=== PATIENT | female | born 1945 | race Caucasian/White ===

== ENCOUNTER 2023-11-23 13:15 | Outpatient (RCR) | payer MEDICARE, SELFPAY ==
--- NOTE | 2023-10-27 16:15 | PTOPEVAL1 ---
Assessment and note entered by Shanthi Lopez, PT Assessment Status Evaluation Diagnosis Presence of artificial joint R knee, weakness, oth abnormalities of gait Subjective Information Pt reports total knee replacement R knee [address] Dennis Reports when is on the ground has a really hard time getting back up. 2019 got out of bed, then all of a sudden was on the floor and couldn't get up. Was on the ground so long (5 hrs) ended up at [facility]. Has not had much of a problem with the right knee. Changes in weather are noticeable. The other day had a small fall and from the floor scooted over till got close to the bed, used foot rail to assist in pulling herself up. Reports left knee is about time to be replaced but other times has no problems. Right knee recovery went great . Feels like weakness and mobility deficits may be related to both knees. Sometimes doesn't need her cane but usually takes it with her all the time for security purposes. Reports trying to walk one day was with a friend, and all of a sudden felt the need to sit down for a few minutes. Also gets lower back pain. History of spinal infection with fall in 2019. Assessment PT Clinical Summary Pt presents for evaluation of presence of artificial knee RLE and other abnormalities of gait and mobility. Pt currently does not complain of pain in RLE but does have history of back pain. Pt demo's what appears to be sacral and pelvic alignment issues, decreased strength lumbopelvic all effecting stability and ambulation. Pt will greatly benefit from physical therapy to address deficits and improve safe functional independence. Plan of Care Interventions Electrical Stimulation,Hot Pack/Cold Pack,Manual Therapy,Neuro Re-education,Patient/Caregiver Educati,Therapeutic Activities,Therapeutic Exercise,Ultrasound PT Services Indicated Yes Treatment Frequency and 1-2x weekly x 8 weeks Duration These treatments will address the objective and functional deficits as defined above. The patient will be advanced safely and appropriately in order for the patient to progress towards his/her prior leve
--- NOTE | 2023-10-27 16:15 | OPREHPOC ---
Outpatient Therapy Plan of Care This is a Multidisciplinary Plan of Care that may contain components documented by all disciplines (PT, OT, and ST.) PT Problem 1 PT Problem #1 Knowledge Deficit PT Goal 1 Goal Pt will be independent in HEP Pt will verbalize understanding of diagnosis and prognosis Target Visit 8 PT Problem 2 PT Problem #2 Impaired Gait PT Goal 1 Goal Pt will demo gait of 80 feet without audible clunking showing increased pelvic stability Target Visit 8 PT Goal 2 Goal Pt will demo equal stance time, equal step length, appropriate lubar and hip alignment with ambulation with LRAD showing improved balance and stability Target Visit 16 PT Problem 3 PT Problem #3 Impaired Strength PT Goal 1 Goal Pt will demo core strength of 3+/5 of the TRAM to improve lumbopelvic stability PT Goal 2 Goal Pt will demo strength of 4/5 in all tested planes
--- NOTE | 2023-11-23 15:38 | PTOPDC ---
Assessment and note entered by Shanthi Lopez, PT Assessment Status Discharge Diagnosis Presence of artificial joint R knee, weakness, oth abnormalities of gait Subjective Information Pt reports yesterday her back did really well. Pt reports weakness in knees is a 3/10 , does feel improved overall. Reports the other day was on a stool and it went out from under her but she was able to get up independently. Both hips are sore and knees are stiff but not painful. Percieve Improvement: 30% overall. Reports weather effects her as well Reported Pain Level Pain Score 4,0: Self Report Assessment PT Clinical Summary Pt has attended six visits including evaluation for her weakness and gait/mobility issues. She reports feeling 30% improved overall, has show some mild increases in balance and strength but significant increases in quality of movement in ambulation. However due to having to go out of town for a month or more, she asked to wrap up her therapy and plans to come back to therapy upon her return home. She has partially met many of her goals but did not have the time in therapy to fully realize all her goals. Thus patient is being discharged per request.
== END 2023-11-30 09:10 | disposition home or self-care (01) ==
LOC: ANHHIPT 13:15
PROVIDERS: PCP Family Medicine; Visit Provider Family Medicine
DX: R26.89 Other abnormalities of gait and mobility (principal); R53.1 Weakness; Z96.651 Presence of right artificial knee joint
CPT/HCPCS: 97110; 97112; 97140; 97161; 97750

== ENCOUNTER 2024-05-29 13:15 | Outpatient (RCR) | payer MEDICARE, SELFPAY ==
--- NOTE | 2024-03-20 14:30 | PTOPEVAL1 ---
Assessment and note entered by Litzy Bailey, PT Evaluation Information Assessment Status Evaluation Diagnosis osteoarthritis, abnormalities of gait and mobility, Low Back Pain Therapy Conditions weakness, balance deficits, postural abnormalities Onset approx a month ago Subjective Information Pt reports waking up one day and experiencing pain the moment she got up and started walking. States it was a 5/10 at the time, she took Tylenol to relieve the pain. Reports having increased difficulty with stairs, bending and lifting objects off the floor; increased difficulty with getting up from the floor after falling earlier in January; have had a few falls and near fall experiences due to balance issues. Pt's goal is to alleviate the pain, wants to walk without the cane, be a little more steady on her feet. Reported Pain Level Pain Score 4: Self Report Assessment PT Clinical Summary Pt presents with pain to lowback radiating down to L buttock, hip and hamstrings area down to the back of her knee, usual onset is during the initial step after being in a prolonged sitting/ lying down position. weakness creating muscle imbalance with RLE stronger than the LLE; postural deficits and significant gait impairments, pt is currently using a cane. Skilled PT necessary to manage pain, improve strength, postural alignment, address balance deficits and gait impairments to allow patient to perform IADLs safely and independently. Plan of Care Interventions Check Out for Orthotic/Pr,Electrical Stimulation, Gait Training,Hot Pack/Cold Pack,Manual Therapy, Neuro Re-education,Patient/Caregiver Educati, Therapeutic Activities,Therapeutic Exercise PT Services Indicated Yes Treatment Frequency and 2x/week x 12 visits Duration These treatments will address the objective and functional deficits as defined above. The patient will be advanced safely and appropriately in order for the patient to progress towards his/her prior level of function. Additional exercises will be introduced and as well as a comprehensive home exercise program upon discharge, if needed, ?to ensure carryover of functional gains achieved in the clinic. This treatment plan has been reviewed and agreement upon by the patient.
--- NOTE | 2024-04-10 16:51 | PTOPEVAL1 ---
Assessment and note entered by Litzy Bailey, PT Evaluation Information Assessment Status Evaluation Diagnosis M19.90, R26.89, M54.50 Therapy Conditions Pain, weakness, gait impairments Onset approx a month ago Subjective Information Pt reports waking up one day and experiencing pain the moment she got up and started walking. States it was a 5/10 then, took Tylenol to relieve the pain. Reports having increased difficulty with stairs, bending and lifting objects off the floor; increased difficulty with getting up from the floor after falling earlier in January; have had a few falls and near fall experiences due to balance issues. Pt's goal is to alleviate the pain, wants to walk without the cane, be a little more steady on her feet. Reported Pain Level Pain Score 4: Self Report Assessment PT Clinical Summary Pt presents with pain to lowback radiating down to L buttock, hip and hamstrings area down to the back of her knee, usual onset is during the initial step after being in a prolonged sitting/ lying down position. weakness creating muscle imbalance with RLE stronger than the LLE; postural deficits and significant gait impairments, pt is currently using a cane. Skilled PT necessary to manage pain, improve strength, postural alignment, address balance deficits and gait impairments to allow patient to perform IADLs safely and independently. Plan of Care Interventions Check Out for Orthotic/Pr,Electrical Stimulation, Gait Training,Hot Pack/Cold Pack,Manual Therapy, Neuro Re-education,Patient/Caregiver Educati, Therapeutic Activities,Therapeutic Exercise PT Services Indicated Yes Treatment Frequency and 2x/week x 12 visits Duration These treatments will address the objective and functional deficits as defined above. The patient will be advanced safely and appropriately in order for the patient to progress towards his/her prior level of function. Additional exercises will be introduced and as well as a comprehensive home exercise program upon discharge, if needed, ?to ensure carryover of functional gains achieved in the clinic. This treatment plan has been reviewed and agreement upon by the patient.
--- NOTE | 2024-04-19 17:31 | PTOPEVAL1 ---
Assessment and note entered by Litzy Bailey, PT Re-Eval Information Assessment Status Progress Diagnosis sciatica Onset approx a month ago Subjective Information Pt reports that she has multiple mosquito bites this morning; otherwise she is feeling better on her low back after last treatment. states that R knee is bothering her more. she is wearing orthotics 2 layers on the L side today. states she felt significant reduction in pain and sciatic symptoms since doing the nerve flossing; also noticed improved mobility to [facility] States her ultimate goal is to be able to walk without the cane, feels like she is getting there but not quite yet. Reported Pain Level Pain Score 4,4: Self Report Assessment PT Clinical Summary Pt demos good progress with therapy. Upon re- assessment, pt reports her sciatic nerve pain is resolving, however she was complaining of R knee ( h/o TKR) pain, continued unsteadiness and instability at this time. tests confirmed lack of a good IR motion on L hip and some tightness to ITB of R LE. she will benefit from continued skilled PT to improve stability, balance and promote safe, indep ambulation . Plan of Care Interventions Check Out for Orthotic/Pr,Electrical Stimulation, Gait Training,Hot Pack/Cold Pack,Manual Therapy, Neuro Re-education,Patient/Caregiver Educati, Therapeutic Activities,Therapeutic Exercise, Ultrasound PT Services Indicated Yes Treatment Frequency and 2x/week x 8 visits Duration These treatments will address the objective and functional deficits as defined above. The patient will be advanced safely and appropriately in order for the patient to progress towards his/her prior level of function. Additional exercises will be introduced and as well as a comprehensive home exercise program upon discharge, if needed, ?to ensure carryover of functional gains achieved in the clinic. This treatment plan has been reviewed and agreement upon by the patient.
--- NOTE | 2024-06-07 09:14 | PTOPDC ---
Assessment and note entered by Litzy Bailey, PT Discharge Information Assessment Status Discharge Diagnosis sciatica Onset approx a month ago Subjective Information Pt reports that B knees are bothering her more than the back today. She is wearing orthotics 2 layers on the L LE today. states she felt significant reduction in back pain and improved mobility to B hips. Assessment PT Clinical Summary Pt reports significant reduction in pain to low back and centralization of symptoms, does not feel the radicular symptoms to her LLE at this time. However, she is experiencing increased B knee pain which is greatly influencing her gait and standing tolerance. Skilled PT discontinued for the back, due to Sciatic nerve pain is resolving. Plans to consult with provider regarding UTI issues and plans to request for an order for therapy to the hips and knees pain. Plan of Care PT Services Indicated No
== END 2024-06-07 09:28 | disposition home or self-care (01) ==
LOC: ANHHIPT 13:15
PROVIDERS: PCP Family Medicine; Visit Provider Family Medicine
DX: M54.50 Low back pain, unspecified (principal); M19.90 Unspecified osteoarthritis, unspecified site; R26.89 Other abnormalities of gait and mobility
CPT/HCPCS: 97110; 97112; 97116; 97140; 97161; 97530; 97750

== ENCOUNTER 2024-09-27 11:00 | Outpatient (RCR) | payer MEDICARE, SELFPAY ==
--- NOTE | 2024-07-25 10:57 | PTOPEVAL1 ---
Assessment and note entered by Litzy Bailey, PT Evaluation Information Assessment Status Evaluation Diagnosis M25.552 ICD-10 Condition Codes (PT) Pain in low back M54.50,Pain in left hip M25.552, Repeated falls R29.6,Difficulty Walking R26.2,R26. 9,Weakness R53.1 Subjective Information Pt. reports falling when going up on a porch step and fell backward 06/23/24, hit the lowback and hip L > R. Increased pain with weight bearing, feels like muscles are pulling when she moves. Took muscle relaxer and [place] for pain relief and noticed significant reduction in pain. Recently, pain increases with prolonged standing ( brushing teeth and shower). Also feels increased pressure to tailbone and L hip with prolonged sitting, lying on the L side. Increased difficulty with lower body dressing after the fall due to soreness. Patient wants to be able to ambulate without assistive device and not fall. Reported Pain Level Pain Score 6,5: Self Report Assessment PT Clinical Summary Pt is a 78 yo female who presents to therapy due to a mechanical fall on 06/23/24; Pertinent medical history include Frequent UTIs, Instability of ankle, Lumbar pain, Osteoarthritis, Stroke. Pt reports increased pain, decreased standing tolerance and balance deficits and significant gait impairments, relying heavily to [place] and hand held assist from daughter for longer distance ambulation task. Pt will benefit from skilled PT to address pain and deficits, improve functional strength, reduce pain, promote indep functional mobility and ambulation, reduce risk for falls. Plan of Care Interventions Electrical Stimulation,Gait Training,Hot Pack/Cold Pack,Manual Therapy,Neuro Re-education,Patient/ Caregiver Education,Therapeutic Activities, Therapeutic Exercise,Ultrasound Other Interventions IASTM, Taping PT Services Indicated Yes Treatment Frequency and 2x/wk x 20 visits Duration These treatments will address the objective and functional deficits as defined above. The patient will be advanced safely and appropriately in order for the patient to progress towards his/her prior level of function. Additional exercises will be introduced and as well as a comprehensive home exercise program upon discharge, if needed, ?to ensure carryover of functional gains achieved in the clinic. This treatment plan has been reviewed and agreement upon by the patient.
--- NOTE | 2024-09-03 11:41 | PTOPPROG ---
Assessment and note entered by Litzy Bailey, PT Re-Eval Information Assessment Status Progress Diagnosis M25.552 ICD-10 Condition Codes (PT) Pain in low back M54.50,Pain in left hip M25.552, Repeated falls R29.6,Difficulty Walking R26.2,R26. 9,Weakness R53.1 Subjective Information Pt reports hip pain is getting better and she is able to move better; However, she cont to feel unbalanced and unstable when walking. Assessment PT Clinical Summary Pt demos good gains in strength and mobility, significant reduction in pain levels and indep functional mobility. However, her BRIONES BALANCE TEST Score, 5x STS and 2min walk test cont to indicate that pt is a high fall risk. she will benefit from continued skilled PT to continue to work on her balance and stability to improve safety in performing indep standing and ambulation tasks with or without AD. Plan of Care Interventions Electrical Stimulation,Gait Training,Hot Pack/Cold Pack,Manual Therapy,Neuro Re-education,Patient/ Caregiver Education,Therapeutic Activities, Therapeutic Exercise,Ultrasound,Other Other Interventions IASTM, Taping PT Services Indicated Yes Treatment Frequency and 1-2x/wk x 10 visits Duration These treatments will address the objective and functional deficits as defined above. The patient will be advanced safely and appropriately in order for the patient to progress towards his/her prior level of function. Additional exercises will be introduced and as well as a comprehensive home exercise program upon discharge, if needed, ?to ensure carryover of functional gains achieved in the clinic. This treatment plan has been reviewed and agreement upon by the patient.
--- NOTE | 2024-09-27 17:13 | PTOPDC ---
Assessment and note entered by Shanthi Lopez, PT Evaluation Information Assessment Status Evaluation Diagnosis M25.552 ICD-10 Condition Codes (PT) Pain in low back M54.50,Pain in left hip M25.552, Repeated falls R29.6,Difficulty Walking R26.2,R26. 9,Weakness R53.1 Subjective Information Still taking tylenol occasionally but no longer requires prescription medication. Prolonged standing does cause pain not so much anymore especially if has cane . Sitting long periods is not bad. Laying on her left side is better. Self perceived improvement: 90% Still with walking , trying to walk straight or smooth. some days feels like she can get up and move, and some days does the back and forth movement. Reported Pain Level Pain Score 2,4: Self Report Additional Pain Score Comments Reports took a while after the fall for the pain to reduce Assessment PT Clinical Summary Pt has attended therapy consistently for her left hip pain and back pain after a fall. She shows great functional improvement in her balance scores , sit<>stand ability, and reports feeling 90% better overall. 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 She has met most of her goals, and today was provided updated HEP focused on gluteus medius activation and strengthening. She agrees to taking a break and possibly returning in the new year due to insurance issues, for further strengthening and neuro reeducation of this musculature in attempt to come off of her single point cane. Thus patient is being discharged from current POC with updated HEP and intention to focus on strengthening independently for a few months. Plan of Care PT Services Indicated No
== END 2024-09-28 09:21 | disposition home or self-care (01) ==
LOC: ANHHIPT 11:00
PROVIDERS: PCP Nurse Practitioner Family; Visit Provider Nurse Practitioner Family
DX: M54.50 Low back pain, unspecified (principal)
CPT/HCPCS: 97014; 97035; 97110; 97112; 97116; 97140; 97161; 97530; 97750; G0283

== ENCOUNTER 2025-01-07 08:27 | Outpatient (CLI) | payer MEDICARE, SELFPAY | END 2025-01-07 08:28 | disposition home or self-care (01) | PROVIDERS: PCP Nurse Practitioner Family; Visit Provider Urology | DX: N20.0 Calculus of kidney (principal) | CPT/HCPCS: 74018 ==